=== PATIENT | male | born 1940 | race Caucasian/White ===

== ENCOUNTER 2019-11-21 07:30 | Outpatient (CLI) | payer MEDICARE, SELFPAY ==
[2019-11-21 07:52] LABS: Appearance Urine Clear (Clear); Basophils Absolute Auto 0.05 K/mm3 (0.00-0.10); Basophils Percent Auto 0.4 % (0.0-1.0); Bilirubin Urine Negative (Negative); Color Urine Yellow (Yellow); Eosinophils Absolute Auto 0.27 K/mm3 (0.02-0.50); Eosinophils Percent Auto 2.4 % (1.0-6.0); Glucose Urine UA Negative (Negative); Hematocrit 46.8 % (37.0-46.0); Hemoglobin 16.1 g/dL (12.4-15.3); Immature Granulocyte Absolute 0.03 K/mm3 (0.00-0.00); Immature Granulocyte Percent A 0.3 % (0.0-0.0); Ketones Urine Negative (Negative); Leukocyte Esterase Ur Negative (Negative); Lymphocytes Absolute Auto 5.27 K/mm3 (1.10-4.50); Lymphocytes Percent Auto 46.5 % (18.0-42.0); Mean Corpuscular HGB Conc 34.4 g/dL (32.0-36.0); Mean Corpuscular Volume 95.9 fL (78.0-102.0); Mean Platelet Volume 9.4 fl (8.7-11.0); Monocytes Absolute Auto 0.79 K/mm3 (0.10-0.90); Neutrophils Absolute Auto 4.9 K/mm3 (1.7-7.2); Neutrophils Percent Auto 43.4 % (50.0-70.0); Nitrate Urine Negative (Negative); Platelet Count Result 244 K/mm3 (150-420); Protein Urine Negative (Negative); Red Blood Count 4.88 M/mm3 (4.70-6.10); Red Cell Distribution Width 12.3 % (11.6-14.4); Urobilinogen Urine 0.2 mg/dL (0.2-1.0); White Blood Count 11.3 K/mm3 (4.8-10.8)
[2019-11-21 07:56] LABS: Add Urine Microscopic? YES; Bacteria Urine None seen /hpf; Blood Urine Trace-Intact (Negative); RBC Urine 0-2 /hpf (0-2); WBC Urine 0-3 /hpf (0-3)
[2019-11-21 09:59] LABS: Alanine Aminotransferase 43 U/L (16-63); Albumin Level 3.7 g/dL (3.4-5.0); Alkaline Phosphatase 76 U/L (46-116); Anion Gap 15.7 mmol/L (7-16); Aspartate Amino Transferase 22 U/L (15-37); Bilirubin,Total 0.2 mg/dL (0.00-1.00); Blood Urea Nitrogen 17 mg/dL (7-18); Calcium 8.8 mg/dL (8.5-10.1); Carbon Dioxide 23 mmol/L (21-32); Chloride 107 mmol/L (98-108); Cholesterol 179 mg/dL (0-200); Estimated Glomerular Filt Rate 59; Glucose 98 mg/dL (70-99); HDL Direct 32 mg/dL (40-60); LDL Cholesterol Calculated 88 mg/dL (<130); Osmolality Calculated 293 mOsm/kg (285-295); Potassium 4.7 mmol/L (3.5-5.1); Prostate Specific Antigen 0.6 ng/mL (< OR = 4.0); Sodium 141 mmol/L (136-145); Total Protein 6.9 g/dL (6.4-8.2); Triglycerides 296 mg/dL (0-150)
== END 2019-11-21 07:31 | disposition home or self-care (01) ==
PROVIDERS: PCP Internal Medicine; Visit Provider Internal Medicine
DX: E78.5 Hyperlipidemia, unspecified (principal); I10 Essential (primary) hypertension; Z00.00 Encounter for general adult medical examination without abnormal findings; Z12.5 Encounter for screening for malignant neoplasm of prostate
CPT/HCPCS: 36415; 80053; 80061; 81001; 84153; 85025; G0103

== ENCOUNTER 2020-09-24 09:07 | Outpatient (CLI) | payer MEDICARE, SELFPAY ==
[2020-09-24 10:22] LABS: SARS-CoV-2 Ag Negative (Negative)
== END 2020-09-24 09:08 | disposition home or self-care (01) ==
LOC: CHSLAB 09:11
PROVIDERS: PCP Internal Medicine; Visit Provider Internal Medicine
DX: Z20.828 Contact with and (suspected) exposure to other viral communicable diseases (principal)
CPT/HCPCS: 87426

== ENCOUNTER 2021-04-04 13:11 | Outpatient (CLI) | payer MEDICARE, SELFPAY | END 2021-04-04 13:12 | disposition home or self-care (01) | PROVIDERS: PCP Internal Medicine; Visit Provider Specialist | DX: C44.01 Basal cell carcinoma of skin of lip (principal) | CPT/HCPCS: 88305 ==

== ENCOUNTER 2021-05-25 07:47 | Outpatient (CLI) | payer MEDICARE, SELFPAY ==
[2021-05-25 09:25] LABS: Cholesterol 150 mg/dL (0-200); HDL Direct 36 mg/dL (40-60); LDL Cholesterol Calculated 83 mg/dL (<130); Triglycerides 155 mg/dL (0-150)
== END 2021-05-25 07:48 | disposition home or self-care (01) ==
LOC: CHSLAB 07:50
PROVIDERS: PCP Internal Medicine; Visit Provider Internal Medicine Cardiovascular Disease
DX: E78.5 Hyperlipidemia, unspecified (principal)
CPT/HCPCS: 36415; 80061

== ENCOUNTER 2021-07-17 11:39 | Outpatient (CLI) | payer MEDICARE, SELFPAY ==
[2021-07-17 14:23] LABS: SARS-CoV-2 RNA PCR Negative (Negative)
== END 2021-07-17 11:40 | disposition home or self-care (01) ==
LOC: CHSLAB 11:42
PROVIDERS: PCP Internal Medicine; Visit Provider Internal Medicine
DX: Z20.822 Contact with and (suspected) exposure to COVID-19 (principal)
CPT/HCPCS: C9803; U0003; U0005

== ENCOUNTER 2021-08-03 07:57 | Outpatient (CLI) | payer MEDICARE, SELFPAY ==
[2021-08-03 08:59] LABS: Cholesterol 123 mg/dL (0-200); HDL Direct 40 mg/dL (40-60); LDL Cholesterol Calculated 62 mg/dL (<130); Triglycerides 106 mg/dL (0-150)
== END 2021-08-03 07:58 | disposition home or self-care (01) ==
LOC: CHSLAB 08:01
PROVIDERS: PCP Internal Medicine; Visit Provider Internal Medicine Cardiovascular Disease
DX: E78.5 Hyperlipidemia, unspecified (principal)
CPT/HCPCS: 36415; 80061

== ENCOUNTER 2021-08-17 07:37 | Outpatient (CLI) | payer MEDICARE, SELFPAY ==
[2021-08-17 07:50] LABS: Basophils Absolute Auto 0.05 K/mm3 (0.00-0.10); Basophils Percent Auto 0.5 % (0.0-1.0); Eosinophils Absolute Auto 0.24 K/mm3 (0.02-0.50); Eosinophils Percent Auto 2.2 % (1.0-6.0); Immature Granulocyte Absolute 0.03 K/mm3 (0.00-0.00); Immature Granulocyte Percent A 0.3 % (0.0-0.0); Lymphocytes Absolute Auto 4.84 K/mm3 (1.10-4.50); Lymphocytes Percent Auto 44.2 % (18.0-42.0); Mean Corpuscular HGB Conc 34.1 g/dL (32.0-36.0); Mean Corpuscular Hemoglobin 32.8 pg (27.0-31.0); Mean Corpuscular Volume 96.3 fL (78.0-102.0); Mean Platelet Volume 8.9 fl (8.7-11.0); Monocytes Absolute Auto 0.77 K/mm3 (0.10-0.90); Neutrophils Percent Auto 45.8 % (50.0-70.0); Platelet Count Result 285 K/mm3 (150-420); Red Blood Count 4.57 M/mm3 (4.70-6.10); Red Cell Distribution Width 12.3 % (11.6-14.4)
[2021-08-17 07:51] LABS: Appearance Urine Clear (Clear); Bilirubin Urine Negative (Negative); Color Urine Light Yellow (Yellow); Glucose Urine UA Negative (Negative); Ketones Urine Negative (Negative); Leukocyte Esterase Ur Negative (Negative); Nitrate Urine Negative (Negative); Protein Urine Negative (Negative); Specific Grav Ur 1.025 (1.010-1.020); Urobilinogen Urine 0.2 mg/dL (0.2-1.0)
[2021-08-17 08:18] LABS: Add Urine Microscopic? YES; Bacteria Urine None seen /hpf; Blood Urine Trace-Intact (Negative); RBC Urine 0-2 /hpf (0-2); WBC Urine None seen /hpf (0-3)
[2021-08-17 08:37] LABS: Alanine Aminotransferase 30 U/L (16-63); Albumin Level 3.5 g/dL (3.4-5.0); Alkaline Phosphatase 75 U/L (46-116); Anion Gap 9 mmol/L (8-16); Aspartate Amino Transferase 18 U/L (15-37); Bilirubin,Total 0.3 mg/dL (0.00-1.00); Blood Urea Nitrogen 16 mg/dL (7-18); Calcium 8.7 mg/dL (8.5-10.1); Carbon Dioxide 24 mmol/L (21-32); Chloride 106 mmol/L (98-108); Estimated Glomerular Filt Rate > 60; Glucose 104 mg/dL (70-99); Osmolality Calculated 289 mOsm/kg (285-295); Potassium 4.6 mmol/L (3.5-5.1); Prostate Specific Antigen 0.5 ng/mL (< OR = 4.0); Sodium 139 mmol/L (136-145); Thyroid Stimulating Hormone 2.74 uIU/mL (0.36-3.74); Total Protein 6.5 g/dL (6.4-8.2)
== END 2021-08-17 07:38 | disposition home or self-care (01) ==
LOC: CHSLAB 07:39
PROVIDERS: PCP Internal Medicine; Visit Provider Internal Medicine
DX: E78.5 Hyperlipidemia, unspecified (principal); I10 Essential (primary) hypertension; N40.1 Benign prostatic hyperplasia with lower urinary tract symptoms; Z12.5 Encounter for screening for malignant neoplasm of prostate
CPT/HCPCS: 36415; 80053; 81001; 84153; 84443; 85025; G0103

== ENCOUNTER 2021-12-12 11:13 | Outpatient (CLI) | payer MEDICARE, SELFPAY | END 2021-12-12 11:14 | disposition home or self-care (01) | LOC: CHSOUTPT 11:15 | PROVIDERS: PCP Internal Medicine; Visit Provider Specialist | DX: C44.319 Basal cell carcinoma of skin of other parts of face (principal) | CPT/HCPCS: 88305 ==

== ENCOUNTER 2022-12-10 11:36 | Outpatient (CLI) | payer MEDICARE, SELFPAY ==
[2022-12-10 12:22] LABS: SARS-CoV-2 RNA PCR Positive (Negative)
== END 2022-12-10 11:37 | disposition home or self-care (01) ==
LOC: CHSLAB 11:38
PROVIDERS: PCP Internal Medicine; Visit Provider Internal Medicine
DX: U07.1 COVID-19 (principal)
CPT/HCPCS: U0003; U0005

== ENCOUNTER 2024-05-14 15:32 | Emergency (ER) | payer MEDICARE, SELFPAY ==
[2024-05-14] VITALS (10 sets, daily range): BP systolic 130–146; BP diastolic 66–72; PULSE 87–114; RESP 12–20; TEMP 36.2; O2SAT 95–99
--- NOTE | ~2024-05-14 | CT_ITS ---
EXAMINATION: CT brain wo con DATE: 05/14/2024 16:06 INDICATION: Confusion and garbled speech TECHNIQUE: Computed tomography (CT) of the head was performed without intravenous contrast. Sagittal and coronal reconstructions were performed. The mA was adjusted according to patient size. Iterative reconstruction technique was employed. The dose-length product was 681.00 mGy-cm. COMPARISON: None FINDINGS: No acute intracranial hemorrhage, acute infarction or abnormal extra axial fluid collection. There is mild scattered white matter hypoattenuation consistent with chronic small vessel ischemic disease. S ymmetric prominence of the sulci and and subarachnoid spaces overlying the convexities consistent wit h mild age-appropriate diffuse cerebral volume loss. Ventricles are normal and symmetric. No mass/mas s effect. The orbits, paranasal sinuses and mastoid air cells are normal. IMPRESSION: 1. Normal aging brain. No acute intracranial process. Reviewed, dictated and finalized at location A.
[2024-05-14 15:41] LABS: Glucose Point of Care 122 mg/dl (65-105)
--- NOTE | 2024-05-14 15:46 | ECG_ITS ---
Test Date: 2024-05-14 15:55:18 Measurements Intervals [place] Rate: 103 P: 55 CT: 200 QRS: 48 QRSD: 93 T: 61 QT: 322 QTc: 423 Interpretive Statements SINUS TACHYCARDIA ABNORMAL RHYTHM ECG No previous ECG available for comparison Electronically Signed On 05-15-2024 15:19:32 CDT by Aamir Herrera M.D.
[2024-05-14 15:58] LABS: Basophils Absolute Auto 0.06 K/mm3 (0.00-0.10); Basophils Percent Auto 0.5 % (0.0-1.0); Eosinophils Absolute Auto 0.23 K/mm3 (0.02-0.50); Hematocrit 44.4 % (37.0-46.0); Hemoglobin 15.4 g/dL (12.4-15.3); Immature Granulocyte Absolute 0.03 K/mm3 (0.00-0.00); Immature Granulocyte Percent A 0.3 % (0.0-0.0); Lymphocytes Percent Auto 43.1 % (18.0-42.0); Mean Corpuscular HGB Conc 34.7 g/dL (32-36); Mean Corpuscular Hemoglobin 32.9 pg (27.0-31.0); Mean Corpuscular Volume 94.9 fL (78.0-102.0); Mean Platelet Volume 9.3 fl (8.7-11.0); Monocytes Absolute Auto 0.69 K/mm3 (0.10-0.90); Monocytes Percent Auto 5.9 % (2.0-11.0); Neutrophils Absolute Auto 5.59 K/mm3 (1.70-7.20); Neutrophils Percent Auto 48.2 % (50.0-70.0); Platelet Count Result 238 K/mm3 (150-420); Red Blood Count 4.68 M/mm3 (4.70-6.10); Red Cell Distribution Width 13.2 % (11.6-14.4); White Blood Count 11.6 K/mm3 (4.8-10.8)
[2024-05-14 16:11] LABS: Alanine Aminotransferase 37 U/L (16-63); Albumin Level 3.4 g/dL (3.4-5.0); Alkaline Phosphatase 92 U/L (46-116); Anion Gap 10 mmol/L (4-12); Aspartate Amino Transferase 22 U/L (15-37); Bilirubin,Total 0.4 mg/dL (0.00-1.00); Blood Urea Nitrogen 16 mg/dL (7-18); Calcium 8.6 mg/dL (8.5-10.1); Carbon Dioxide 23 mmol/L (21-32); Chloride 103 mmol/L (98-108); Creatine Kinase 58 U/L (39-308); Estimated CRCL calculation 45 ml/min; Estimated Glomerular Filt Rate > 60; Glucose 122 mg/dL (70-99); Osmolality Calculated 284 mOsm/kg (285-295); Sodium 136 mmol/L (136-145); Total Protein 6.7 g/dL (6.4-8.2)
[2024-05-14 16:15] LABS: Lactic Acid Reflex 1.3 mmol/L (0.4-2.0)
[2024-05-14] MEDS: SODIUM CHLORIDE 0.9% IV 1,000 ML 999 ML IV CONT (16:15)
[2024-05-14 16:50] LABS: Add Urine Microscopic? NO; Appearance Urine Clear (Clear); Bilirubin Urine Negative (Negative); Blood Urine Negative (Negative); Color Urine Light Yellow (Yellow); Glucose Urine UA Negative (Negative); Ketones Urine Negative (Negative); Leukocyte Esterase Ur Negative LEU/UL (Negative); Nitrate Urine Negative (Negative); Protein Urine Negative (Negative)
--- NOTE | 2024-05-14 16:50 | ED.AMS ---
HPI - Altered Mental Status General Chief Complaint: Altered Mental Status Stated Complaint: altered mental status Source: patient and family Mode of arrival: ambulatory Limitations: no limitations History of Present Illness HPI narrative: this is 84-year-old male with no significant past medical history presents with his after he was outdoors picking tomatoes and when he came back inside developed an episode of confusion not recognizing his at that time. Patient appears to be back to baseline with no neurological deficits. Currently no complaints, no fever or chills no nausea vomiting no headache no blurry vision no chest pain or shortness of breath. Patient denies having any dysuria hematuria or flank pain. MD complaint: altered mental status and confusion Onset (ago): minute(s) Timing confirmed by: spouse Severity: mild Consistency of symptoms: unknown ( Resolved) Related Data Home Medications Medication Instructions Recorded Confirmed finasteride 5 mg tablet 5 mg PO DAILY 05/14/24 05/14/24 lisinopril 10 mg tablet 10 mg PO DAILY 05/14/24 05/14/24 rosuvastatin 40 mg tablet 40 mg PO DAILY 05/14/24 05/14/24 tamsulosin 0.4 mg capsule 0.4 mg PO DAILY 05/14/24 05/14/24 Allergies Allergy/AdvReac Type Severity Reaction Status Date / Time No Known Allergies Allergy Verified 05/14/24 16:07 Review of Systems Review of Systems: All systems reviewed & are unremarkable except as noted in HPI and below PMFSH Past Medical History Medical History HTN (hypertension) Exam Const: General: healthy appearing, no acute distress and alert Nutritional Appearance: well nourished Orientation/consciousness: patient oriented x3 Limitations: no limitations HENMT: Head: normal to inspection Eyes: Conjunctivae: conjunctivae normal Pupils: Equal, round and reactive pupils present EOM: EOMs intact bilaterally Direct Ophthalmoscopy: no photophobia Neck: Neck: normal visual inspection, no lymphadenopathy and no meningeal signs Chest: Chest palpation & inspection: normal inspection of the chest Resp: Effort & Inspection: normal respiratory effort Auscultation: clear to auscultation bilaterally Cardio: Rate: regular rate Rhythm: regular rhythm GI: GI Palp: Yes Soft to palpation Auscultation: normal bowel sounds : General: Yes bladder normal to palpation Male General Exam: Yes normal external exam Back/Spine/Pelvis: Back: no CVA tenderness Skin: General skin exam: normal color Rashes: no rashes Neuro: General: patient oriented x3, moves all extremities, no meningeal signs and no focal motor deficits Cranial nerves: Yes Nystagmus not present Speech: normal speech Gait exam (Neuro): Normal gait present Extrem: General: normal to inspection and no clubbing, cyanosis or edema Psych: Mental Status: mental status grossly normal Course Course Emergency Course: patient had an EKG performed which showed normal sinus rhythm, his vitals are stable with a blood pressure 136/66, CT scan performed shows no acute intracranial abnormalities. All labs performed reviewed and unremarkable. Patient received a L of normal saline, urinalysis obtained and reviewed with family. Vital Signs Vital signs: Vital Signs Pulse Rate 112 H 05/14/24 15:32 Respiratory Rate 20 05/14/24 15:32 Blood Pressure 146/72 H 05/14/24 15:32 Pulse Oximetry 96 05/14/24 15:32 Temperature 36.2 C L 05/14/24 15:33 Pulse Rate 87 05/14/24 16:46 Respiratory Rate 20 05/14/24 16:46 Blood Pressure 136/66 05/14/24 16:46 Pulse Oximetry 98 05/14/24 16:46 Oxygen Delivery Room Air 05/14/24 16:46 MDM - Altered Mental Status Lab Data 05/14/24 15:30 05/14/24 15:30 Labs: Lab Results 05/14/24 05/14/24 05/14/24 Range/Units 15:30 15:38 16:40 WBC 11.6 H (4.8-10.8) K/mm3 RBC 4.68 L (4.70-6.10) M/mm3 Hgb 15.4 H (1
== END 2024-05-14 16:56 | disposition home or self-care (01) ==
PROVIDERS: Emergency Provider Emergency Medicine; PCP Internal Medicine
DX: E86.0 Dehydration (principal); I10 Essential (primary) hypertension; Z79.899 Other long term (current) drug therapy
CPT/HCPCS: 36415; 70450; 80053; 81003; 82550; 82948; 83605; 85025; 93005; 96360; 99284; J7030

== ENCOUNTER 2024-05-21 08:12 | Outpatient (CLI) | payer MEDICARE, SELFPAY ==
--- NOTE | ~2024-05-21 | CT_ITS ---
EXAMINATION: CTA brain carotid DATE: 05/21/2024 09:32 INDICATION: Transient ischemic attack. Speech deficit. TECHNIQUE: Computed tomographic angiography (CTA) of the head was performed without and with 100 mL O mnipaque-350 intravenous contrast. CTA of the neck was performed with intravenous contrast. Automated exposure control and iterative reconstruction technique were employed. The dose-length product was 1 652.08 mGy-cm. Maximum intensity projection and volume rendered 3D-reconstructions were created by ania polk technologist on a separate workstation. COMPARISON: Head CT 05/14/2024 FINDINGS: HEAD CTA: There is no intracranial hemorrhage, acute infarction, or abnormal intracranial mass lesion . The ventricles are normal in size. There is mild mucosal thickening in the ethmoid sinuses. The mas toid air cells are normal. The orbits are normal. The vertebral arteries are codominant. There is no significant stenosis of basilar artery or the posterior cerebral arteries. There is no significant st enosis of the intracranial internal carotid arteries or anterior or middle cerebral arteries. Anterio r communicating artery is normal. There is no aneurysm. NECK CTA: There is mild scarring at the lung apices. There are no pathologically enlarged lymph nodes . 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 There is plaque in the proximal interna l carotid arteries. There is 0% stenosis of the proximal right internal carotid artery relative to no rmal distal artery lumen diameter (NASCET criteria). There is 0% stenosis of the proximal left advisory intern al carotid artery relative to normal distal artery lumen diameter. There is severe cervical spondylos is. IMPRESSION: 1. Normal brain. No aneurysm or significant intracranial arterial stenosis 2. 0% stenosis of the proximal internal carotid arteries relative to normal distal artery lumen diame ters (NASCET criteria). Reviewed, dictated and finalized at location A. IMPRESSION: 1. Normal brain. No aneurysm or significant intracranial arterial stenosis 2. 0% stenosis of the proximal internal carotid arteries relative to normal dis fabiano artery lumen diameters (NASCET criteria).
--- NOTE | ~2024-05-21 | CT_ITS ---
EXAMINATION:CT chest high resolution [facility] DATE: 05/21/2024 09:32 INDICATION: Interstitial lung disease. TECHNIQUE: Computed tomography (CT) of the chest was performed without intravenous contrast. Automate d exposure control and iterative reconstruction technique were employed. The dose-length product (DLP ) was 151.82 mGy-cm. COMPARISON: Chest CT 12/02/2013 FINDINGS: There is mild scarring at the lung apices. There are calcified pleural plaques bilaterally, which may be seen with asbestos exposure. There are peripheral groundglass opacities and septal thic kening in the lungs with a lower lung predominance, consistent with asbestosis. No bronchiectasis or honeycombing. A calcified left lung nodule and calcified left hilar lymph nodes are consistent with o ld granulomatous disease. No pleural effusion. The heart size is normal. There are coronary artery ca lcifications. No pericardial effusion. Calcifications in the spleen are consistent with old granuloma tous disease. There is mild thoracic spondylosis. IMPRESSION: 1. Mild asbestosis. Reviewed, dictated and finalized at location A. IMPRESSION: 1. Mild asbestosis.
== END 2024-05-21 08:13 | disposition home or self-care (01) ==
PROVIDERS: PCP Internal Medicine; Visit Provider Internal Medicine
DX: J84.9 Interstitial pulmonary disease, unspecified (principal); J61 Pneumoconiosis due to asbestos and other mineral fibers
CPT/HCPCS: 70496; 70498; 71250; Q9967

== ENCOUNTER 2024-05-23 07:56 | Outpatient (CLI) | payer MEDICARE, SELFPAY ==
--- NOTE | ~2024-05-23 | MR_ITS ---
EXAMINATION: MR brain/brain stem wo con DATE: 05/23/2024 08:44 INDICATION: Transient ischemic attack. TECHNIQUE: Magnetic resonance imaging (MRI) of the brain and brainstem was performed without intraven ous contrast. COMPARISON: Head CT 05/21/2024 FINDINGS: There are acute infarcts in left parietal lobe. There is increased T2-weighted signal inten sity in the sara, which is normal for the patient's age. There is no intracranial hemorrhage or abnor mal mass lesion. The ventricles are normal in size. The orbits are normal. The paranasal sinuses are clear. The mastoid air cells are normal. IMPRESSION: 1. 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 Reviewed, dictated and finalized at location A.
== END 2024-05-23 07:57 | disposition home or self-care (01) ==
LOC: CHSIMG 07:58
PROVIDERS: PCP Internal Medicine; Visit Provider Internal Medicine
DX: G45.9 Transient cerebral ischemic attack, unspecified (principal)
CPT/HCPCS: 70551